=== PATIENT | male | born 1995 | race Two or more races ===

== ENCOUNTER 2018-03-03 05:07 | Emergency (ER) | payer BC ==
[~2018-03-03] VITALS: Ht 170.2 cm; Wt 67.1 kg
[2018-03-03 05:20] VITALS: BP 132/78
--- NOTE | 2018-03-03 05:24 | Emergency Room Report ---
History of Present Illness General Chief Complaint: Abdominal Pain Source: Patient (Lito Kennedy MD) Present Illness HPI Is a 22-year-old male with a history of appendectomy in the past. He presents with chief complaint of left lower quadrant pain for 12 hours. Getting worse. Has nausea and vomiting. No radiation. No hematuria. Pain is 9 out of 10. Nothing made it better. palpation made it worse. Denies any other complaint. Has not taken anything for this. (Lito Kennedy MD) Allergies: Coded Allergies: No Known Allergies (Unverified , 03/03/18) Patient History Past Medical History: see triage record, old chart reviewed Past Surgical History: appy Pertinent Family History: none Social History: Denies: smoking Immunizations: other Reviewed Nursing Documentation: PMH: Agreed; PSxH: Agreed (Lito Kennedy MD) Nursing Documentation-PMH Past Medical History: No Stated History (Lito Kennedy MD) Review of Systems Eye: Denies: eye pain, blurred vision ENT: Denies: ear pain, nose congestion, throat swelling Respiratory: Denies: cough, shortness of breath Cardiovascular: Denies: chest pain, palpitations Gastrointestinal: Reports: abdominal pain; Denies: diarrhea, nausea, vomiting Musculoskeletal: Denies: back pain, joint pain Skin: Denies: rash Neurological: Denies: headache, numbness Endocrine: Denies: increased thirst, increased urine Hematologic/Lymphatic: Denies: easy bruising All Other Systems: negative except mentioned in HPI (Lito Kennedy MD) Physical Exam Vital Signs Date Time Temp Pulse Resp B/P (MAP) Pulse Ox O2 Delivery O2 Flow Rate FiO2 03/03/18 05:12 98.1 88 18 122/76 99 Room Air vitals normal Sp02 EP Interpretation: reviewed, normal General Appearance: well appearing, no apparent distress, alert Head: normocephalic, atraumatic Eyes: bilateral eye PERRL, bilateral eye EOMI ENT: hearing grossly normal, normal pharynx Neck: full range of motion, supple, no meningismus Respiratory: chest non-tender, lungs clear, normal breath sounds Cardiovascular #1: regular rate, rhythm, no murmur Gastrointestinal: normal bowel sounds, no mass, no organomegaly, no bruit, non- distended, tenderness - Left lower quadrant Musculoskeletal: back normal, gait/station normal, normal range of motion Psychiatric: mood/affect normal Skin: warm/dry (Lito Kennedy MD) Medical Decision Making Diagnostic Impression: Primary Impression: Renal colic on left side Additional Impression: Ureteral stone with hydronephrosis ER Course Patient presents with left lower quadrant pain. This is secondary to a ureteral stone with hydronephrosis. No evidence of infection obstruction. Pain is better after Dilaudid. Patient was discharged per Dr. Cornelius instruction. (Lito Kennedy MD) ER Course Please refer to the initial report for the history exam and presentation at this time the patient had a CAT scan obtained Evidence of 4 mm stone in the left side is seen Please note that online radiology report a 4 mm stone Reports that this morning is reading 6 mm This is taken into consideration and discussed with the patient and updated With the increased risk of needing to come back if pain persist Patient received Toradol on repeat evaluation is doing significantly better Given the patient's blood work findings clinical reexamination and the history patient will have attempt of outpatient care and disposition primary physician will be contacted by the patient for further outpatient urology follow-up As there was no emergent requirement for inpatient care patient will return with any worsening symptoms Such as pain or fevers Labs Test 03/03/18 05:05 03/03/18 06:58 White Blood Count 9.5 K/UL (4.8-10.8) Red Blood Count 4.70 M/UL (4.70-6.10) Hemoglobin 14.9 G/DL (14.2-18.0) Hematocrit 43.9 % (42.0-52.0) Mean Corpuscular Volume 93 FL (80-99) Mean Corpuscular Hemoglobin 31.8 PG (27.0-31.0) Mean Corpuscular Hemoglobin Concent 34.0 G/DL (32.0-36.0) Red Cell Distribution Width 12.1 % (11.6-14.8) Platelet Count 207 K/UL (150-450) Mean Platelet Volume 6.6 FL (6.5-10.1) Neutrophils (%) (Auto) 65.8 % (45.0-75.0) Lymphocytes (%) (Auto) 24.2 % (20.0-45.0) Monocytes (%) (Auto) 7.8 % (1.0-10.0) Eosinophils (%) (Auto) 1.4 % (0.0-3.0) Basophils (%) (Auto) 0.9 % (0.0-2.0) Sodium Level 141 MMOL/L (136-145) Potassium Level 3.5 MMOL/L (3.5-5.1) Chloride Level 104 MMOL/L (98-107) Carbon Dioxide Level 27 MMOL/L (21-32) Anion Gap 10 mmol/L (5-15) Blood Urea Nitrogen 13 mg/dL (7-18) Creatinine 1.1 MG/DL (0.55-1.30) Estimat Glomerular Filtration Rate > 60 mL/min (>60) Glucose Level 129 MG/DL (74-106) Calcium Level 9.2 MG/DL (8.5-10.1) Total Bilirubin 0.2 MG/DL (0.2-1.0) Aspartate Amino Transf (AST/SGOT) 16 U/L (15-37) Alanine Aminotransferase (ALT/SGPT) 22 U/L (12-78) Alkaline Phosphatase 65 U/L (46-116) Total Protein 7.1 G/DL (6.4-8.2) Albumin 3.9 G/DL (3.4-5.0) Globulin 3.2 g/dL Albumin/Globulin Ratio 1.2 (1.0-2.7) Lipase 62 U/L (73-393) Urine Color Yellow Urine Appearance Slightly cloudy Urine pH 6 (4.5-8.0) Urine Specific [place] 1.025 (1.005-1.035) Urine Protein 2+ (NEGATIVE) Urine Glucose (UA) Negative (NEGATIVE) Urine Ketones 1+ (NEGATIVE) Urine Blood 5+ (NEGATIVE) Urine Nitrite Negative (NEGATIVE) Urine Bilirubin Negative (NEGATIVE) Urine Urobilinogen Normal MG/DL (0.0-1.0) Urine Leukocyte Esterase 1+ (NEGATIVE) Urine RBC 15-20 /HPF (0 - 0) Urine WBC 0-2 /HPF (0 - 0) Urine Squamous Epithelial Cells None /LPF (NONE/OCC) Urine Amorphous Sediment Moderate /LPF (NONE) Urine Bacteria Few /HPF (NONE) (Jenny Chadwick DO) CT/MRI/US Diagnostic Results CT/MRI/US Diagnostic Results : Impression CT abdomen pelvisIMPRESSION: 6 mm left proximal ureteral stone associated with hydroureteronephrosis and inflammatory changes. Additional nonobstructive punctate stone in the left kidney noted. Status post appendectomy [facility] has communicated the preliminary results to the Emergency Department. Their findings are largely concordant with this report. (Jenny Chadwick DO) Last Vital Signs Date Time Temp Pulse Resp B/P (MAP) Pulse Ox O2 Delivery O2 Flow Rate FiO2 03/03/18 05:12 98.1 88 18 122/76 99 Room Air Status: improved (Lito Kennedy MD) Status: improved (Jenny Chadwick DO) Disposition: HOME, SELF-CARE Condition: Improved Scripts Tamsulosin Hcl (TAMSULOSIN HCL*) 0.4 Mg Cap.er.24h 0.4 MG ORAL BEDTIME for 5 Days, CAP Prov: Jenny Chadwick DO 03/03/18 Acetaminophen With Codeine (T#3) (TYLENOL #3 TAB*) Y Tab 1 TAB ORAL Q8H PRN for For Pain, #10 TAB Prov: Jenny Chadwick DO 03/03/18 Ibuprofen* (MOTRIN*) 600 Mg Tablet 600 MG ORAL Q8H PRN for For Pain, #20 TAB 0 Refills Prov: Jenny Chadwick DO 03/03/18 Additional Instructions: Patient is provided with the discharge instructions notified to follow up with primary doctor in the next 2-3 days otherwise return to the er with any worsening symptoms. Please note that this report is being documented using DRAGON technology. This can lead to erroneous entry secondary to incorrect interpretation by the dictating instrument. Lito Kennedy MD Mar 03, 2018 05:24 Jenny Chadwick DO Mar 03, 2018 09:18
[2018-03-03] MEDS ORDERED: HYDROmorphone 1mg/ml Carpuject IVP ONE ×2 (05:30→06:30)
[2018-03-03 05:38] LABS: BASOPHILS % (AUTO) 0.9 % (0.0-2.0); EOSINOPHILS % (AUTO) 1.4 % (0.0-3.0); HEMATOCRIT 43.9 % (42.0-52.0); HEMOGLOBIN 14.9 G/DL (14.2-18.0); LYMPHOCYTES % (AUTO) 24.2 % (20.0-45.0); MEAN CORPUSCULAR VOLUME 93 FL (80-99); MONOCYTES % (AUTO) 7.8 % (1.0-10.0); NEUTROPHILS % (AUTO) 65.8 % (45.0-75.0); PLATELET COUNT 207 K/UL (150-450); RED CELL DISTRIBUTION WIDTH 12.1 % (11.6-14.8); WHITE BLOOD COUNT 9.5 K/UL (4.8-10.8)
[2018-03-03 05:49] LABS: ANION GAP 10 mmol/L (5-15); BLOOD UREA NITROGEN 13 mg/dL (7-18); CALCIUM 9.2 MG/DL (8.5-10.1); CARBON DIOXIDE 27 MMOL/L (21-32); CHLORIDE 104 MMOL/L (98-107); CREATININE 1.1 MG/DL (0.55-1.30); POTASSIUM 3.5 MMOL/L (3.5-5.1); SODIUM 141 MMOL/L (136-145)
[2018-03-03 05:55] LABS: ALANINE AMINOTRANSFERASE 22 U/L (12-78); ALBUMIN 3.9 G/DL (3.4-5.0); ALBUMIN/GLOBULIN RATIO 1.2 (1.0-2.7); ALKALINE PHOSPHATASE 65 U/L (46-116); ASPARTATE AMINO TRANSFERASE 16 U/L (15-37); BILIRUBIN,TOTAL 0.2 MG/DL (0.2-1.0)
[2018-03-03 07:00] VITALS: BP 105/87
[2018-03-03 07:11] LABS: APPEARANCE,URINE SLIGHTLY CLOUDY; BILIRUBIN, URINE NEGATIVE (NEGATIVE); GLUCOSE, URINE (UA) NEGATIVE (NEGATIVE); KETONES,URINE 1+ (NEGATIVE); LEUKOCYTE ESTERASE ,URINE 1+ (NEGATIVE); NITRITE,URINE NEGATIVE (NEGATIVE); PH,URINE 6 (4.5-8.0); PROTEIN,URINE 2+ (NEGATIVE); UROBILINOGEN,URINE NORMAL MG/DL (0.0-1.0)
[2018-03-03 07:13] LABS: COLOR,URINE YELLOW
[2018-03-03] MEDS ORDERED: Ketorolac 30mg Inj IV ONE (08:15)
[2018-03-03] MEDS ORDERED: Tamsulosin 0.4mg cap ORAL ONE (08:15)
--- NOTE | 2018-03-03 08:48 | Diagnostic Imaging Report ---
Indication: Abdominal pain Technique: Continuous helical transaxial imaging of the abdomen and pelvis was obtained from the lung bases to the pubic symphysis. No intravenous contrast was administered. Coronal 2-D reformats were also obtained. Automatic Exposure Control was utilized. Total Dose length Product (DLP): 502.[address] Dose Index Volume (CTDIvol): 10.24 mGy Comparison: none Findings: There is a 6 mm left proximal ureteral stone associated with the mild to moderate hydroureteronephrosis. Tiny punctate stone in the left midpole calyx also demonstrated. Some periureteral stranding noted proximally. The urinary bladder is unremarkable. The right kidney is unremarkable. Gallbladder is unremarkable. There is no free fluid identified. Postappendectomy changes noted. IMPRESSION: 6 mm left proximal ureteral stone associated with hydroureteronephrosis and inflammatory changes. Additional nonobstructive punctate stone in the left kidney noted. Status post appendectomy [facility] has communicated the preliminary results to the Emergency Department. Their findings are largely concordant with this report. The CT scanner at [facility] is accredited by the [employer] and the scans are performed using dose optimization techniques as appropriate to a performed exam including Automatic Exposure control.
[2018-03-03] MEDS ORDERED: TAMSULOSIN HCL0.4 MG ORAL (09:15)
[2018-03-03] MEDS ORDERED: ACETAMINOPHEN-1 EAC1 ORAL (09:15)
[2018-03-03] MEDS ORDERED: IBUPROFEN600 MG ORAL (09:15)
[2018-03-03 09:29] VITALS: BP 113/58
[2018-03-03 09:30] VITALS: BP 113/58
== END 2018-03-03 09:34 | disposition home or self-care (01) ==
LOC: EMR 05:28
DX: N13.2 Hydronephrosis with renal and ureteral calculous obstruction (principal); Z98.890 Other specified postprocedural states
CPT/HCPCS: 36415; 74176; 80053; 81003; 83690; 85025; 96361; 96374; 96375; 96376; 99284; J1170; J1885; J2405